=== PATIENT | male | born 1990 | race Native Hawaiian/Other Pacific Islander ===

== ENCOUNTER 2017-05-27 02:47 | Emergency (ER) | payer OTHER ==
[~2017-05-27] VITALS: Ht 170.2 cm; Wt 90.5 kg
[~2017-05-27 02:47] MED LIST: CYCL5TAB PO; IBUP-232 PO; IBUP800T23 PO; LORA0.5T PO; PERC7.5T13 PO; TRAM50 PO
[2017-05-27 02:49] VITALS: BP 142/73; PULSE 102; RESP 16; TEMP 98.6; O2SAT 99
[2017-05-27] MEDS ORDERED: PROPARACAINE HCL 0.5% OPHT SOLN 15 ML BTL RIGHT EYE ONE (03:30)
--- NOTE | 2017-05-27 03:41 | PD ---
HPI Chief Complaint: Eye Problems/Injury Time Seen by Provider: 03:26 Travel History International Travel<30 days: No Contact w/Intl Traveler<30days: No Traveled to known affect area: No History of Present Illness HPI 26-year-old male patient presents to the ER today because he states that for several days he's noticed increased swelling and foreign body sensation in itchiness to the right eye. He complains of some blurriness of vision. He denies any fevers or any other issues. Patient is not a contact lens user, had tried to use [id number] drops after the symptoms started but without significant improvement. Modifying Factors: None Associated Signs & Symptoms: Right eye irritation, swelling Risk Factors: None PFSH Past Medical History Anxiety: Yes Neurologic: Yes (Lower back compressed disc) Tetanus Vaccination: Unknown Influenza Vaccination: No Past Surgical History Surgical History: No Previous Surgery Social History Alcohol Use: No Tobacco Use: No Substance Use: No Allergies-Medications (Allergen,Severity, Reaction): Coded Allergies: No Known Allergies (Unverified Adverse Reaction, Unknown, 05/27/17) Reported Meds & Prescriptions Reported Meds & Active Scripts Active Lorazepam 0.5 Mg Tab 0.5 Mg PO Q6H PRN [id number] Mg 600 Mg Tab 600 Mg PO Q6 PRN Z.0.percocet7.5 - 1 Tab PO Q6 FOR PAIN [id number].[id number] Mg 50 Mg Tab 1 Tab PO Q6 PRN FOR PAIN Z.0.flexeril5 Mg 5 Mg Tab 5 Mg PO BID PRN UNKNOWN DOSE [id number] Mg 800 Mg Tab 800 Mg PO TID Review of Systems Except as stated in HPI: all other systems reviewed are Neg Physical Exam Narrative GENERAL: Well-nourished, well-developed male patient in mild distress. SKIN: Focused skin assessment warm/dry. HEAD: Normocephalic. EYES: No scleral icterus. There is notable right conjunctival injection especially laterally and significant chemosis. Pupils are equal, round, reactive to light bilaterally. Extraocular movements are intact. Eyelids are fairly unaffected. NECK: Supple, trachea midline. No JVD or lymphadenopathy. CARDIOVASCULAR: Regular rate and rhythm without murmurs, gallops, or rubs. RESPIRATORY: Breath sounds equal bilaterally. No accessory muscle use. GASTROINTESTINAL: Abdomen soft, non-tender, nondistended. MUSCULOSKELETAL: No cyanosis, or edema. BACK: Nontender without obvious deformity. No CVA tenderness. Data Data Last Documented VS Vital Signs Date Time Temp Pulse Resp B/P (MAP) Pulse Ox O2 Delivery O2 Flow Rate FiO2 05/27/17 02:49 98.6 102 16 142/73 (96) 99 Room Air Orders Orders Complete Blood Count With Diff (05/27/17 03:26) Basic Metabolic Panel (Bmp) (05/27/17 03:26) Proparacaine 0.5% Opth Soln (Alcaine 0.5 (05/27/17 03:30) Diphenhydramine (Benadryl) (05/27/17 03:45) Diphenhydramine Inj (Benadryl Inj) (05/27/17 03:45) Methylprednisolone So Succ Inj (Solumedr (05/27/17 04:00) Ed Discharge Order (05/27/17 04:37) Labs Laboratory Tests Test 05/27/17 03:45 White Blood Count 13.1 TH/MM3 Red Blood Count 5.57 MIL/MM3 Hemoglobin 16.6 GM/DL Hematocrit 47.3 % Mean Corpuscular Volume 84.9 FL Mean Corpuscular Hemoglobin 29.9 PG Mean Corpuscular Hemoglobin Concent 35.2 % Red Cell Distribution Width 13.9 % Platelet Count 151 TH/MM3 Mean Platelet Volume 9.0 FL Neutrophils (%) (Auto) 73.0 % Lymphocytes (%) (Auto) 19.1 % Monocytes (%) (Auto) 6.2 % Eosinophils (%) (Auto) 1.3 % Basophils (%) (Auto) 0.4 % Neutrophils # (Auto) 9.5 TH/MM3 Lymphocytes # (Auto) 2.5 TH/MM3 Monocytes # (Auto) 0.8 TH/MM3 Eosinophils # (Auto) 0.2 TH/MM3 Basophils # (Auto) 0.0 TH/MM3 CBC Comment DIFF FINAL Differential Comment Blood Urea Nitrogen 15 MG/DL Creatinine 1.11 MG/DL Random Glucose 97 MG/DL Calcium Level 8.8 MG/DL Sodium Level 141 MEQ/L Potassium Level 3.9 MEQ/L Chloride Level 105 MEQ/L Carbon Dioxide Level 29.3 MEQ/L Anion Gap 7 MEQ/L Estimat Glomerular Filtration Rate 81 ML/MIN MDM Medical Decision Making Medical Screen Exam Complete: Yes Emergency Medical Condition: Yes Medical Record Reviewed: Yes Interpretation(s) Laboratory Tests Test 05/27/17 03:45 White Blood Count 13.1 TH/MM3 (4.0-11.0) Neutrophils (%) (Auto) 73.0 % (16.0-70.0) Neutrophils # (Auto) 9.5 TH/MM3 (1.8-7.7) Estimat Glomerular Filtration Rate 81 ML/MIN (>89) Differential Diagnosis Chemosis, conjunctival erythema: Allergic reaction versus conjunctivitis versus orbital cellulitis versus periorbital cellulitis Narrative Course Fluorescein exam was done on the eye and did not show any signs of corneal abrasions. Tonometry was also done on the right eye and it shows pressures of 15, 16, and 21. Extraocular movements are intact. Pupils are reactive to light bilaterally. Patient is 20/25 in both eyes. At this point, I suspect that he has an underlying allergic reaction. Benadryl and Solu-Medrol IV was given in the ER. My plan would be to treat him with further antibiotic eyedrops and antihistamine eyedrops. We will have him follow-up with ophthalmology. Return for any worsening in symptoms as necessary. The plan has been discussed with the patient and he states understanding. Procedures Procedure Narrative Right eye tonometry: One drop of proparacaine was placed in the right eye and fluorescein strip was used to place yellow dye. Terrazas lamp was used to examine the eye, did not show any signs of corneal abrasions. And tonometry pen was used for evaluation of ocular pressures on the right: Pressures were 15, 16, and 21. Diagnosis Primary Impression: Chemosis of right conjunctiva Referrals: Rosita Torres MD Med/Other Pt SpecificInfo: Prescription(s) given Scripts Ketotifen Opth Drops ([place] Opth Drops) 0.025% Drops 1 DROP RIGHT EYE Q6H Y for ALLERGIC REACTION, #10 ML Prov: Beverly Del Toro MD 05/27/17 Polymyxin B-Trimethoprim Opth Drops (Polytrim Opth Drops) 10,000-0.1 Unit/Ml-% Soln 1 DROP RIGHT EYE Q6HR for Mgmt Bacterial Infection, #1 BOTTLE 0 Refills Prov: Beverly Del Toro MD 05/27/17 Disposition: 01 DISCHARGE HOME Condition: Stable Beverly Del Toro MD May 27, 2017 03:41
[2017-05-27] MEDS ORDERED: diphenhydrAMINE HCL 25 MG CAP PO ONE (03:45)
[2017-05-27] MEDS ORDERED: diphenhydrAMINE HCL 50 MG/ML VIAL IV PUSH ONE (03:45)
[2017-05-27] MEDS ORDERED: methylPREDNISolone SOD SUCC 125 MG/2 ML VIAL IV PUSH ONE (04:00)
[2017-05-27 04:05] LABS: AUTOMATED NEUTROPHIL # 9.5 TH/MM3 (1.8-7.7); BASOPHIL % 0.4 % (0.0-2.0); EOSINOPHIL # 0.2 TH/MM3 (0-0.4); EOSINOPHIL % 1.3 % (0.0-4.0); HEMATOCRIT 47.3 % (39.0-51.0); HEMOGLOBIN 16.6 GM/DL (13.0-17.0); LYMPH % 19.1 % (9.0-44.0); LYMPHOCYTE # 2.5 TH/MM3 (1.0-4.8); MEAN CELL VOLUME 84.9 FL (80.0-100.0); MEAN CORPUSCULAR HEMOGLOBIN 29.9 PG (27.0-34.0); MEAN CORPUSCULAR HGB CONC 35.2 % (32.0-36.0); MONO % 6.2 % (0.0-8.0); MONOCYTE # 0.8 TH/MM3 (0-0.9); PLATELET COUNT 151 TH/MM3 (150-450); RED BLOOD COUNT 5.57 MIL/MM3 (4.50-5.90); RED CELL DISTRIBUTION WIDTH 13.9 % (11.6-17.2); WHITE BLOOD COUNT 13.1 TH/MM3 (4.0-11.0)
[2017-05-27 04:33] LABS: BICARBONATE 29.3 MEQ/L (21.0-32.0); CALCIUM 8.8 MG/DL (8.5-10.1); CREATININE 1.11 MG/DL (0.60-1.30)
[2017-05-27] MEDS ORDERED: ALAW0.02 RIGHT EYE (04:45)
[2017-05-27] MEDS ORDERED: POLY10O RIGHT EYE (04:45)
== END 2017-05-27 05:40 | disposition home or self-care (01) ==
LOC: NEPC 02:47
DX: H11.421 Conjunctival edema, right eye (principal)
CPT/HCPCS: 80048; 85025; 96374; 96375; 99284; J1200; J2930